=== PATIENT | female | born 1995 | race Caucasian/White ===

== ENCOUNTER → 2020-07-05 | Outpatient (CLI) | payer OTHER ==
[~2020-07-05] MED LIST: CLEOCIN HCL300 MG PO; DELSYM30 MG/5 ML PO; FLEXERIL 10 MG10 MG PO; IBUPROFEN800 MG PO; NAPROSYN500 MG PO; PROTONIX40 MG PO; ZOFRAN4 MG PO
== END ==
LOC: US 13:12
DX: N63.10 Unspecified lump in the right breast, unspecified quadrant (principal); R92.2 Inconclusive mammogram
CPT/HCPCS: 76641-LT; 76641-RT

== ENCOUNTER → 2021-01-17 | Outpatient (CLI) | payer OTHER | LOC: HEART 5 11-29 10:00 | DX: R07.9 Chest pain, unspecified (principal); R00.2 Palpitations | CPT/HCPCS: 93306 ==

== ENCOUNTER → 2021-01-31 | Outpatient (CLI) | payer OTHER | LOC: EMI 15:33 | DX: R56.9 Unspecified convulsions (principal) | CPT/HCPCS: 70551 ==